=== PATIENT | female | born 1955 | race Caucasian/White ===

== ENCOUNTER → 2020-02-25 14:18 | Outpatient (BNVA) | payer MEDICARE, BC, SELFPAY | PROVIDERS: PCP Internal Medicine; Visit Provider Hospitalist | DX: J44.9 Chronic obstructive pulmonary disease, unspecified (principal); J96.11 Chronic respiratory failure with hypoxia; J31.0 Chronic rhinitis; Z99.81 Dependence on supplemental oxygen; Z79.899 Other long term (current) drug therapy | CPT/HCPCS: 99212 ==

== ENCOUNTER 2020-06-26 13:45 | Outpatient (REF) | payer MEDICARE, BC, SELFPAY ==
[2020-06-26 15:11] LABS: ABG Base Excess 7.1 mmol/L; ABG HCO3 30 mmol/L (22-26); ABG pCO2 39 mmHg (32-45); ABG pCO2 TC 38 mmHg (32-45); ABG pH 7.49 (7.35-7.45); ABG pO2 90 mmHg (83-108); ABG pO2 TC 88 (83-108)
[2020-06-26 15:30] LABS: MANUAL DIFF FLAG NO
[2020-06-26 15:43] LABS: Basophils Absolute Auto 0.1 X10*3/uL (0.0-0.2); Basophils Percent Auto 0.7 % (0-2); D Dimer 246 NG/ML; Eosinophils Absolute Auto 0.3 X10*3/uL (0.0-0.4); Eosinophils Percent Auto 2.9 % (0-4); Hematocrit 36.3 % (37-47); Hemoglobin 12.3 g/dl (12.0-16.0); Imm Gran Abs Auto 0.03 X10*3/uL (0.00-0.03); Imm Gran Pct Auto 0.3 % (0.0-0.4); Lymphocytes Absolute Auto 0.8 X10*3/uL (1.2-4.9); Mean Corpuscular HGB Conc 33.9 g/dl (31.0-35.0); Mean Corpuscular Hemoglobin 27.3 pg (27.0-33.0); Mean Corpuscular Volume 80.5 fL (80-98); Mean Platelet Volume 9.2 fL (9.4-12.3); Monocytes Percent Auto 11.5 % (2-11); Neutrophils Absolute Auto 6.6 X10*3/uL (2.0-8.3); Neutrophils Percent Auto 75.6 % (45-73); Platelet Count 450 X10*3/uL (160-400); Red Blood Count 4.51 X10*6/uL (4.20-5.50); White Blood Count 8.8 X10*3/uL (4.8-10.8)
[2020-06-26 16:00] LABS: Anion Gap 13 (12-20); Blood Urea Nitrogen 8 mg/dL (9-16); Calcium 9.4 mg/dL (8.4-10.2); Carbon Dioxide 33 mmol/L (22-29); Chloride 86 mmol/L (96-108); Estimated Glomerular Filt Rate > 60; Glucose Random 94 mg/dL (60-115); Potassium 4.9 mmol/L (3.3-5.1); Sodium 127 mmol/L (135-145)
[2020-06-26 16:33] LABS: Erythrocyte Sedimentation Rate 40 MM/HR (0-20)
[2020-06-27 04:42] LABS: SARS COV2 IgG Negative (Negative)
[2020-06-29 15:42] LABS: Anti Nuclear Antibody Screen NEGATIVE (NEGATIVE)
== END 2020-06-26 13:46 | disposition home or self-care (01) ==
LOC: HO.LAB 13:45
PROVIDERS: PCP Internal Medicine; Visit Provider Hospitalist
DX: J43.2 Centrilobular emphysema (principal); J96.11 Chronic respiratory failure with hypoxia; I27.20 Pulmonary hypertension, unspecified; R79.89 Other specified abnormal findings of blood chemistry; Z01.84 Encounter for antibody response examination; Z87.891 Personal history of nicotine dependence; Z79.899 Other long term (current) drug therapy
CPT/HCPCS: 36415; 80048; 85025; 85379; 85652; 86038; 86039; 86769; Q3014

== ENCOUNTER 2020-06-30 15:34 | Outpatient (REF) | payer MEDICARE, BC, SELFPAY ==
--- NOTE | ~2020-06-30 | CT_ITS ---
EXAMINATION: CT ANGIOGRAM OF THE CHEST WITH AND WITHOUT CONTRAST (CT PULMONARY ANGIOGRAM FOR PE) CLINICAL INFORMATION: Hypoxemia COMPARISON: None TECHNIQUE: Prior to contrast administration, noncontrast localization images were obtained. Subsequently, multidetector volumetric imaging was performed from the thoracic inlet to below the diaphragms following the administration of 100 mL Omnipaque 350 intravenous contrast. No contrast reaction reported Sagittal, coronal, and MIP oblique sagittal reformatted images were obtained on the CT workstation, uploaded to PACS, and reviewed. This CT examination was performed using dose optimization techniques as appropriate, variously including the following: *Automated exposure control *Adjustment of mA and/or kV according to patient size (this includes techniques or standardized protocols for targeted exams where dose is matched to indication/reason for exam; i.e. extremities or head) *Use of iterative reconstruction technique Total exam dose-length product 100 mGy-cm FINDINGS: QUALITY OF STUDY/CONTRAST BOLUS: Satisfactory. PULMONARY ARTERIES: No central or segmental pulmonary emboli. THORACIC AORTA: No aneurysm or dissection. LUNG: There is centrilobular emphysema with left apical parenchymal scarring or atelectasis. Minimal atelectatic changes in bilateral lower lobe. There is no parenchymal nodule, mass or consolidation. PLEURA: No pleural effusion or pneumothorax. MEDIASTINUM: Normal heart size. No pericardial effusion. No hilar or mediastinal lymphadenopathy. No evidence of septal bowing or right heart strain. CHEST WALL/AXILLA: There are small shotty lymph nodes seen in the left axilla with the largest lymph node measuring 1.5 cm axial image 11/5. The chest wall appears unremarkable. OSSEOUS STRUCTURES: No acute or suspicious osseous abnormality.No lytic or sclerotic process seen. There is mild ventral mid and lower dorsal spine spondylosis. UPPER ABDOMEN: There are small hypodense lesions seen in the left hepatic lobe with the largest lesion measuring 1.7 cm. The liver is diffusely attenuated. Visualized spleen and adrenal glands unremarkable. No reflux of contrast into the hepatic veins to suggest elevated right heart pressures. CT/CT angio chest PE protocol IMPRESSION: There is no evidence of PE. No evidence of aortic aneurysm or dissection. Left axillary and large 1.5 cm lymph node, question etiology. Multiple at least 3 hypodense liver lesions. These need to be further evaluated with ultrasound. VTE: negative
[2020-06-30 19:24] LABS: Anion Gap 14 (12-20); Blood Urea Nitrogen 8 mg/dL (9-16); Carbon Dioxide 32 mmol/L (22-29); Chloride 85 mmol/L (96-108); Estimated Glomerular Filt Rate > 60; Glucose Random 89 mg/dL (60-115); Potassium 4.2 mmol/L (3.3-5.1); Sodium 127 mmol/L (135-145)
== END 2020-06-30 15:35 | disposition home or self-care (01) ==
LOC: HO.CT 15:34
PROVIDERS: PCP Internal Medicine; Visit Provider Hospitalist
DX: R09.02 Hypoxemia (principal); R06.00 Dyspnea, unspecified; R79.89 Other specified abnormal findings of blood chemistry; E87.1 Hypo-osmolality and hyponatremia
CPT/HCPCS: 36415; 71275; 80048; Q9967

== ENCOUNTER 2020-07-15 09:58 | Outpatient (REF) | payer MEDICARE, BC, SELFPAY ==
--- NOTE | ~2020-07-15 | US_ITS ---
EXAMINATION: US ABDOMEN COMPLETE CLINICAL INFORMATION: Liver disease. COMPARISON: None TECHNIQUE: Real-time imaging of the abdominal viscera. FINDINGS: PANCREAS: Normal. ABDOMINAL AORTA: The proximal, mid, and distal segments are normal in caliber. INFERIOR VENA CAVA: Visualized portions are normal. LIVER: The liver is normal in size. The liver contour is normal. Liver is increased in echogenicity with areas of focal fatty sparing. There is anechoic left lobe lesion with septation measuring 1.6 x 1.5 x 2.2 cm likely a complex cyst. A second complex cyst in the left lobe measures 1.8 x 2.1 x 2.1 cm. There is no intrahepatic biliary duct dilatation seen. GALLBLADDER: The gallbladder is physiologically distended. Multiple mobile gallstones are present. No evidence of gallbladder wall thickening or pericholecystic fluid. COMMON BILE DUCT: Normal in caliber measuring 0.38 cm in diameter. RIGHT KIDNEY: Normal. No hydronephrosis. No renal calculi or focal parenchymal lesions. The kidney measures 10.6 cm in maximum dimension. LEFT KIDNEY: Normal. No hydronephrosis. No renal calculi or focal parenchymal lesions. The kidney measures 10.5 cm in maximum dimension. SPLEEN: Normal. The spleen measures 9.4 cm in maximum dimension. FREE FLUID: None. US/US abdomen complete IMPRESSION: Hepatic steatosis with areas of focal fatty sparing. 2 complex cysts in the left hepatic lobe. Small echogenic gallstones without wall thickening.
== END 2020-07-15 09:59 | disposition home or self-care (01) ==
LOC: HO.US 09:58
PROVIDERS: Visit Provider Hospitalist
DX: K76.9 Liver disease, unspecified (principal)
CPT/HCPCS: 76700

== ENCOUNTER → 2020-08-06 13:51 | Outpatient (REF) | payer MEDICARE, BC, SELFPAY ==
--- NOTE | 2020-08-06 13:55 | CA_ITS ---
Transthoracic Echocardiogram Patient (Last, First, Middle): Merry Leos, Gender: Female Date of : 1955 Age: 65 Procedure Date: 08/06/2020 Procedure Type: Transthoracic Echocardiogram Location: OP Height: 154.94 cm Weight: 72.12 kg BSA: 1.71 m2 Heart Rate: bpm BP: 140 / 80 mmHg Tile Sorter: ARLETH Referring MD: Rob Cosby MD Symptoms: I27.20 - Pulmonary hypertension, unspecified Study Quality: Technically Difficult/contrast ECG Rhythm: Sinus Conclusions: - The left ventricular systolic function is normal. The visually estimated ejection fraction is between 60-65%. - No obvious valvular pathology seen on this study. - The pulmonary artery systolic pressure is normal. Findings Procedure Information Contrast agent, definity, is being given per protocol without apparent complications. Left Ventricle Normal left ventricular cavity size. There is normal left ventricular wall thickness. The left ventricular systolic function is normal. The visually estimated ejection fraction is between 60-65%. There is no evidence of regional wall motion abnormalities. Diastolic function is normal for age. Right Ventricle Normal right ventricular cavity size and systolic function. Atria The left atrium is normal in size. The right atrium is normal in size. Aortic Valve There is a normal trileaflet aortic valve. There is no aortic valve stenosis. There is no aortic valve regurgitation. Mitral Valve The mitral valve appears normal. There is no mitral valve regurgitation. There is no mitral valve stenosis. Pulmonic Valve The pulmonic valve was not well visualized. Tricuspid Valve Normal tricuspid valve structure. There is trace tricuspid valve regurgitation. The right ventricular systolic pressure is 13 mmHg. The pulmonary artery systolic pressure is normal. Great Vessels The aortic annulus, sinuses of valsalva, and asc aorta are normal in size. Small plaque is seen in the sino tubular ridge. Venous The inferior vena cava is normal in size and collapses greater than 50% with inspiration. Pericardium/Pleural There is no evidence of pericardial effusion. Prior Study Comparison No prior study available for comparison. Recommendations, Care & Conclusions No obvious valvular pathology seen on this study. Measurements 2D Linear Measurements IVSd: 0.77 0.6-0.9/0.6-1.0 cm LVIDd: 4.62 3.9-5.3/4.2-5.9 cm LVIDd Index: 2.70 2.4-3.2/2.2-3.1 cm/m2 LVIDs: 3.12 2.0-3.6 cm LVPWd: 0.81 0.7-1.1 cm Ao Root: 3.00 2.1-3.5 cm LA Diam: 2.70 2.7-3.8/3.0-4.0 cm LAIDs Index: 1.58 1.5-2.3 cm/m2 LV Mass: 144.95 67-162/88-224 g LV Mass Index: 84.76 43-95/49-115 g/m2 LVOT Diam: 1.90 3.0+(-)1.3 cm Mitral Valve MV Pk E: 0.76 MV PK A: 0.89 MV Decel Time: 173.00 E/A: 0.90 E'Lateral: 11.40 E'Medial: 7.51 E/E' Med: 10.10 E/E' Lat: 6.70 PHT: 51.00 MVA PHT: 4.31 Decel Ada: 4.40 Aortic Valve AoV Pk Suhas: 1.31 AoV Mn Suhas: 1.00 AoV VTI: 0.27 AoV Pk Grad: 7.00 Aov Mn Grad: 4.00 HARRISON Cont.VTI: 2.16 LVOT LVOT Pk Suhas: 0.96 LVOT Mn Suhas: 0.66 LVOT VTI: 0.21 LVOT Pk Grad: 4.00 LVOT Mn Grad: 2.00 LVOT Diam: 1.90 LVOT Area: 2.84 Diastolic Function MV Pk E: 0.76 MV Pk A: 0.89 E/A: 0.90 E'Medial: 7.51 E/E' Med: 10.10 E' Laterial: 11.40 E/E' Lat: 6.70 Tricuspid Valve TR Pk Suhas: 1.57 TR Pk Grad: 10.00 RA Press: 3.00 RVSP: 13.00 Great Vessels Aorta Ao Root-2D: 3.00 2.0-3.7 cm Ao Asc: 3.10 2.1-3.4 cm Updated in Other Vendor System with Status of Final Umberto Nguyen MD electronically signed on 08/07/2020 10:27:47 AM with status of Final
== END ==
LOC: HO.CARD 13:51
PROVIDERS: PCP Internal Medicine; Visit Provider Hospitalist
DX: I27.20 Pulmonary hypertension, unspecified (principal)
CPT/HCPCS: 93306; Q9957

== ENCOUNTER → 2020-08-13 10:51 | Outpatient (BNVA) | payer MEDICARE, BC, SELFPAY | PROVIDERS: PCP Internal Medicine; Visit Provider Hospitalist | DX: J44.9 Chronic obstructive pulmonary disease, unspecified (principal); R09.02 Hypoxemia; R06.00 Dyspnea, unspecified; I27.20 Pulmonary hypertension, unspecified | CPT/HCPCS: Q3014 ==

== ENCOUNTER 2020-08-25 11:03 | Outpatient (REF) | payer MEDICARE, BC, SELFPAY ==
--- NOTE | 2020-08-25 17:14 | PFT_ITS ---
FLOWS: FEV1 36% of predicted at 0.81 L. FVC 78% of predicted at 2.24 L. FEV1 to FVC ratio of 0.36. No bronchodilator test was performed as the patient has received bronchodilator 3 hours before the test. LUNG VOLUMES: Total lung capacity 130% of predicted at 5.98 L. Residual volume 199% of predicted at 3.78 L. Slow vital capacity 81% of predicted at 2.20 L. Expiratory reserve volume 97% of predicted at 0.67 L. Diffusion capacity is severely decreased. IMPRESSION: Severe to very severe obstructive ventilatory defect. No bronchodilator testing was performed as the patient received bronchodilator 3 hours before pulmonary function test. Increased total lung capacity suggests hyperinflation. Increased residual volume suggests air trapping. Decreased diffusion capacity suggests emphysema. Shorty Cruz MD AP/MODL / [id number]
== END 2020-08-25 11:04 | disposition home or self-care (01) ==
LOC: HO.RESP 11:03
PROVIDERS: PCP Internal Medicine; Visit Provider Hospitalist
DX: J43.2 Centrilobular emphysema (principal); J96.11 Chronic respiratory failure with hypoxia
CPT/HCPCS: 94010; 94727; 94729

== ENCOUNTER → 2020-09-24 10:31 | Outpatient (BNVA) | payer MEDICARE, BC, SELFPAY | PROVIDERS: PCP Internal Medicine; Visit Provider Hospitalist | DX: J43.2 Centrilobular emphysema (principal); J96.11 Chronic respiratory failure with hypoxia | CPT/HCPCS: 99212 ==

== ENCOUNTER → 2021-02-09 10:21 | Outpatient (BNVA) | payer MEDICARE, BC, SELFPAY | PROVIDERS: PCP Internal Medicine; Visit Provider Hospitalist | DX: J43.2 Centrilobular emphysema (principal); J96.11 Chronic respiratory failure with hypoxia; E87.1 Hypo-osmolality and hyponatremia; F17.210 Nicotine dependence, cigarettes, uncomplicated; Z99.81 Dependence on supplemental oxygen | CPT/HCPCS: 99212 ==

== ENCOUNTER → 2021-08-14 10:44 | Outpatient (BNVA) | payer MEDICARE, BC, SELFPAY | PROVIDERS: PCP Internal Medicine; Visit Provider Hospitalist | DX: J43.2 Centrilobular emphysema (principal); J96.11 Chronic respiratory failure with hypoxia; Z79.899 Other long term (current) drug therapy | CPT/HCPCS: 99212 ==

== ENCOUNTER → 2022-02-12 10:19 | Outpatient (BNVA) | payer MEDICARE, BC, SELFPAY | PROVIDERS: PCP Internal Medicine; Visit Provider Hospitalist | DX: J43.2 Centrilobular emphysema (principal); J96.11 Chronic respiratory failure with hypoxia; Z99.81 Dependence on supplemental oxygen; Z76.82 Awaiting organ transplant status | CPT/HCPCS: 99212 ==